=== PATIENT | female | born 1960 | race Caucasian/White ===

== ENCOUNTER → 2016-11-30 | Outpatient (CLI) | payer OTHER ==
--- NOTE | 2016-12-02 08:31 | KCIC ---
PROCEDURE Bilateral digital screening mammogram. HISTORY 56-year-old female presents for screening mammography. TECHNIQUE Full field digital craniocaudal and mediolateral oblique views of both breasts are obtained. Computer-aided detection was applied. COMPARISON 06/26/2013 FINDINGS Breast parenchymal composition: Level A - Mostly fat. There is no suspicious mass, calcification or architectural distortion with either breast. There is partial visualization of a left cardiac pacemaker. IMPRESSION BI-RADS Category 2: Benign findings. Annual mammography is recommended. Mammography is not 100% sensitive in detecting breast cancer. Therefore, a self breast exam and a clinical breast exam are very important. A negative mammogram does not negate a clinically suspicious finding and should not result in a delay in biopsying a clinically suspicious abnormality. This patient's information has been entered into a reminder system for the patient to be notified with the results of this examination and a target date for her next mammograms. Electronically signed by: Zara Coronel (Dec 02, 2016 08:29:53)
== END | disposition home or self-care (01) ==
LOC: KCIC MAMMO 08:27
PROVIDERS: ATTEND Emergency Medicine
DX: Z12.31 Encounter for screening mammogram for malignant neoplasm of breast (principal)
CPT/HCPCS: G0202; 77067